=== PATIENT | male | born 1975 ===

== ENCOUNTER 2017-09-26 11:01 | Observation (INO) | payer SELFPAY ==
[~2017-09-26] VITALS: Ht 167.6 cm; Wt 91.0 kg
[2017-09-26] VITALS (11 sets, daily range): BP systolic 113–159; BP diastolic 75–110; PULSE 69–106; RESP 14–20; TEMP 98.3–99.3; O2SAT 95–98
--- NOTE | 2017-09-26 11:18 | PD ---
HPI Chief Complaint: Diabetic Time Seen by Provider: 11:15 Travel History International Travel<30 days: No Contact w/Intl Traveler<30days: No Traveled to known affect area: No History of Present Illness HPI 42 YO M with PMH of DM, HTN, hypothyroid, chronic alcoholism presents to the ED for evaluation of 2 day history of intermittent chest tightness. Described as a pressure, lasting 3 or 4 hours before resolving spontaneously. Patient endorses associated shortness of breath, diaphoresis, nausea and dizziness. He endorses nonproductive cough. He endorses a few episode of nonbilious nonbloody vomiting. He endorses blurred vision. He endorses loose stools and occasional streaky blood on the toilet paper. He denies headache, slurred speech, facial droop, unilateral weakness. He denies recent history of fever or chills, He endorses previous similar episodes 6 weeks ago. He was evaluated at [facility] where he had a negative stress test. He states he was diagnosed with T2 DM at that time and recently began taking metformin. He states that he is also attempting to quit drinking. He had a "small drink" 24 hours ago. He endorses years of chronic use. He denies history of cigarette smoking. He endorses history of multiple family members with AR, youngest at age 50. PFSH Past Medical History Cardiovascular Problems: Yes (HTN) Diabetes: Yes Social History Tobacco Use: No Allergies-Medications (Allergen,Severity, Reaction): Coded Allergies: No Known Allergies (Unverified , 09/26/17) Reported Meds & Prescriptions Reported Meds & Active Scripts Active Reported Carvedilol 6.25 Mg Tab 6.25 Mg PO BID Metformin (Metformin HCl) 500 Mg Tab 500 Mg PO BIDPC K-Tab (Potassium Chloride) 10 Meq Tab 10 Meq PO DAILY Synthroid (Levothyroxine Sodium) 150 Mcg Tab 150 Mcg PO DAILY Lisinopril 10 Mg Tab 10 Mg PO DAILY Review of Systems Except as stated in HPI: all other systems reviewed are Neg Physical Exam Narrative GENERAL: Well-nourished, well-developed pale male in no acute distress SKIN: Focused skin assessment warm/diaphoretic. HEAD: Normocephalic. Atraumatic. EYES: No scleral icterus. No injection or drainage. PERRLA. EOMI. NECK: Supple, trachea midline. No JVD or lymphadenopathy. CARDIOVASCULAR: Regular rate and rhythm without murmurs, gallops, or rubs. RESPIRATORY: Breath sounds clear and equal bilaterally. No accessory muscle use. GASTROINTESTINAL: Abdomen soft, non-tender, nondistended. Active bowel sounds. MUSCULOSKELETAL: No cyanosis, or edema. NEUROLOGICAL: Awake and alert. Cranial nerves II through XII intact. Motor and sensory grossly within normal limits. Five out of 5 muscle strength in all muscle groups. Normal speech. No pronator drift. Mild right-sided facial tremor noted. BACK: Nontender without obvious deformity. No CVA tenderness. Data Data Last Documented VS Vital Signs Date Time Temp Pulse Resp B/P (MAP) Pulse Ox O2 Delivery O2 Flow Rate FiO2 09/26/17 14:27 106 20 132/94 (107) 97 Room Air 09/26/17 11:03 98.4 Orders Orders Electrocardiogram (09/26/17 11:39) Ckmb (Isoenzyme) Profile (09/26/17 11:39) Complete Blood Count With Diff (09/26/17 11:39) Comprehensive Metabolic Panel (09/26/17 11:39) Magnesium (Mg) (09/26/17 11:39) Prothrombin Time / Inr (Pt) (09/26/17 11:39) Act Partial Throm Time (Ptt) (09/26/17 11:39) Troponin I (09/26/17 11:39) Chest, Single Ap (09/26/17 11:39) Ecg Monitoring (09/26/17 11:39) Bilateral Bp Monitoring (09/26/17 11:39) Iv Access Insert/Monitor (09/26/17 11:39) Oximetry (09/26/17 11:39) Sodium Chloride 0.9% Flush (Ns Flush) (09/26/17 11:45) Sodium Chlorid 0.9% 500 Ml Inj (Ns 500 M (09/26/17 11:45) Ct Brain W/O Iv Contrast(Rout) (09/26/17 ) Alcohol Withdrawal Asmt-Ciwa ONCE (09/26/17 11:39) Flumazenil Inj (Romazicon Inj) (09/26/17 11:45) Lorazepam (Ativan) (09/26/17 11:45) Lorazepam Inj (Ativan Inj) (09/26/17 11:45) Lorazepam (Ativan) (09/26/17 11:45) Lorazepam Inj (Ativan Inj) (09/26/17 11:45) Lorazepam Inj (Ativan Inj) (09/26/17 11:45) Lorazepam Inj (Ativan Inj) (09/26/17 11:45) Blood Glucose (09/26/17 11:39) Lorazepam Inj (Ativan Inj) (09/26/17 12:45) Alcohol (Ethanol) (09/26/17 12:30) Carvedilol (Coreg) (09/26/17 14:30) Lisinopril (Prinivil) (09/26/17 14:30) Magnesium Sulfate 1 Gm Premix (Magnesium (09/26/17 14:45) Lorazepam Inj (Ativan Inj) (09/26/17 15:00) Admit Order (Ed Use Only) (09/26/17 15:07) Labs Laboratory Tests Test 09/26/17 12:30 09/26/17 13:30 White Blood Count 7.2 TH/MM3 Red Blood Count 3.64 MIL/MM3 Hemoglobin 12.4 GM/DL Hematocrit 35.6 % Mean Corpuscular Volume 97.7 FL Mean Corpuscular Hemoglobin 34.1 PG Mean Corpuscular Hemoglobin Concent 34.8 % Red Cell Distribution Width 17.6 % Platelet Count 275 TH/MM3 Mean Platelet Volume 10.0 FL Neutrophils (%) (Auto) 76.5 % Lymphocytes (%) (Auto) 14.6 % Monocytes (%) (Auto) 7.0 % Eosinophils (%) (Auto) 0.8 % Basophils (%) (Auto) 1.1 % Neutrophils # (Auto) 5.5 TH/MM3 Lymphocytes # (Auto) 1.1 TH/MM3 Monocytes # (Auto) 0.5 TH/MM3 Eosinophils # (Auto) 0.1 TH/MM3 Basophils # (Auto) 0.1 TH/MM3 CBC Comment DIFF FINAL Differential Comment Prothrombin Time 13.4 SEC Prothromb Time International Ratio 1.2 RATIO Activated Partial Thromboplast Time 26.7 SEC Blood Urea Nitrogen 10 MG/DL Creatinine 0.73 MG/DL Random Glucose 135 MG/DL Total Protein 7.8 GM/DL Albumin 3.2 GM/DL Calcium Level 8.9 MG/DL Magnesium Level 0.7 MG/DL Alkaline Phosphatase 129 U/L Aspartate Amino Transf (AST/SGOT) 121 U/L Alanine Aminotransferase (ALT/SGPT) 56 U/L Total Bilirubin 2.7 MG/DL Sodium Level 135 MEQ/L Potassium Level 4.7 MEQ/L Chloride Level 99 MEQ/L Carbon Dioxide Level 25.9 MEQ/L Anion Gap 10 MEQ/L Estimat Glomerular Filtration Rate 117 ML/MIN Total Creatine Kinase 97 U/L Troponin I LESS THAN 0.02 NG/ML Ethyl Alcohol Level LESS THAN 3 MG/DL [facility] Medical Decision Making Medical Screen Exam Complete: Yes Emergency Medical Condition: Yes Differential Diagnosis Acute alcohol withdrawal versus hyperglycemia versus metabolic derangement versus anemia versus less likely ACS versus less likely ICH versus other Narrative Course 42 YO M with PMH of HTN, hypothyroid, chronic alcoholism, recently dx'd T2DM presents to the ED for evaluation of 2 day history of intermittent chest tightness. Described as a pressure, lasting 3 or 4 hours before resolving spontaneously. Patient endorses associated shortness of breath, diaphoresis, nausea and dizziness. He endorses blurred vision, nonproductive cough, a few episode of nonbilious, nonbloody vomiting, loose stools and occasional streaky blood on the toilet paper. He endorses previous similar episodes 6 weeks ago. He was evaluated at [facility] where he had a negative stress test. He states that he is attempting to quit drinking. He had a "small drink" 24 hours ago. He endorses years of chronic use. He denies history of cigarette smoking. He endorses history of multiple family members with AR, youngest at age 50. Patient afebrile, heart rate 101, BP 159/110, fingerstick blood glucose 152 on arrival. On exam the patient is pale and diaphoretic with a slight tremor in the right side of the face. No focal neuro deficits. No appreciable M/R/G. Chest CTAB. Abdomen soft, nontender with active bowel sounds. No CVA tenderness. No lower extremity edema. IV was established. Patient was administered 500 mL normal saline and 2 mg Ativan IV. CIWA protocol ordered. EKG: Rate 96, sinus rhythm. ND interval 163, QRS 91, QTC 431. Normal axis. No acute ST changes. Reviewed by Dr. Rojo. CXR: No acute disease per radiology read. Troponin: Negative 1 CBC: WBC 7.2. Hemoglobin 12.4 INR: 1.2 CMP: Glucose 135. Potassium 4.7. Magnesium 0.7. Bilirubin 2.7. AST 121 EtOH: Less than 3 CT brain: No acute findings I spoke with a friend at bedside who states that the patient is staying with her while he is attempting to quit drinking. They have been unsuccessful in finding a detox facility for the patient. She states that she has been giving him small glasses of vodka throughout the course of the day in an attempt to control his withdrawal symptoms. On recheck the patient remains tremulous. I discussed the findings of the workup and the need for admission. He is agreeable. Dr. Rojo spoke with Dr. Paul who agrees to accept the patient to the medicine service. Please see medicine notes for disposition. Jada Camara Sep 26, 2017 11:18
[2017-09-26] MEDS ORDERED: K-TA10TA PO (11:26)
[2017-09-26] MEDS ORDERED: LISI10TA3 PO (11:26)
[2017-09-26] MEDS ORDERED: LEVO.15 PO (11:26)
[2017-09-26] MEDS ORDERED: CARV6.252 PO (11:26)
[2017-09-26] MEDS ORDERED: METF500T PO (11:26)
[2017-09-26] MEDS ORDERED: LORazepam 2 MG/ML VIAL IM ONE (11:45)
[2017-09-26] MEDS ORDERED: SODIUM CHLORIDE 0.9% FLUSH 10 ML FLUSH IVF PRN (11:45)
[2017-09-26] MEDS ORDERED: LORazepam 2 MG/ML VIAL IV PUSH PRN ×3 (11:45)
[2017-09-26] MEDS ORDERED: LORazepam 2 MG TAB PO PRN (11:45)
[2017-09-26] MEDS ORDERED: FLUMAZENIL 0.5 MG/5 ML VIAL IV PUSH PRN (11:45)
[2017-09-26] MEDS ORDERED: SODIUM CHLORID 0.9% 500 ML INJ 500 ML IV ONE (11:45)
[2017-09-26] MEDS ORDERED: LORazepam 1 MG TAB PO PRN (11:45)
--- NOTE | 2017-09-26 12:15 | RADRPT ---
EXAM DATE/TIME: 09/26/2017 11:45 [facility] COMPARISON: No previous studies available for comparison. INDICATIONS : Chest pain and discomfort. MEDICAL HISTORY : Diabetes mellitus type II. Hypertension SURGICAL HISTORY : None. ENCOUNTER: Initial ACUITY: 2 days PAIN SCORE: 5/10 LOCATION: Bilateral chest FINDINGS: A single view of the chest demonstrates the lungs to be symmetrically aerated without evidence of mas s, infiltrate or effusion. The cardiomediastinal contours are unremarkable. Osseous structures are intact. CONCLUSION: No acute disease. Gabino Traore MD on September 26, 2017 at 12:13 Board Certified Radiologist. This report was verified electronically.
[2017-09-26] MEDS ORDERED: LORazepam 2 MG/ML VIAL IV PUSH ONE ×2 (12:45→15:00)
[2017-09-26 12:52] LABS: AUTOMATED NEUTROPHIL # 5.5 TH/MM3 (1.8-7.7); BASOPHIL # 0.1 TH/MM3 (0-0.2); BASOPHIL % 1.1 % (0.0-2.0); EOSINOPHIL # 0.1 TH/MM3 (0-0.4); EOSINOPHIL % 0.8 % (0.0-4.0); HEMATOCRIT 35.6 % (39.0-51.0); HEMO FLAGS DIFF FINAL; LYMPH % 14.6 % (9.0-44.0); LYMPHOCYTE # 1.1 TH/MM3 (1.0-4.8); MEAN CELL VOLUME 97.7 FL (80.0-100.0); MEAN CORPUSCULAR HEMOGLOBIN 34.1 PG (27.0-34.0); MEAN CORPUSCULAR HGB CONC 34.8 % (32.0-36.0); NEUT % 76.5 % (16.0-70.0); PLATELET COUNT 275 TH/MM3 (150-450); RED BLOOD COUNT 3.64 MIL/MM3 (4.50-5.90); RED CELL DISTRIBUTION WIDTH 17.6 % (11.6-17.2); WHITE BLOOD COUNT 7.2 TH/MM3 (4.0-11.0)
[2017-09-26 14:14] LABS: PROTHROMBIN TIME - PATIENT 13.4 SEC (9.8-11.6)
[2017-09-26 14:15] LABS: APTT (PATIENT) 26.7 SEC (24.3-30.1); INTERNATIONAL NORMALIZED RATIO 1.2 RATIO
[2017-09-26] MEDS ORDERED: CARVEDILOL 6.25 MG TAB PO ONE (14:30)
[2017-09-26] MEDS ORDERED: LISINOPRIL 10 MG TAB PO ONE (14:30)
[2017-09-26 14:33] LABS: ALKALINE PHOSPHATASE 129 U/L (45-117); ALT (GPT) 56 U/L (12-78); ANION GAP 10 MEQ/L (5-15); AST (GOT) 121 U/L (15-37); BICARBONATE 25.9 MEQ/L (21.0-32.0); BLOOD UREA NITROGEN 10 MG/DL (7-18); CHLORIDE 99 MEQ/L (98-107); GLOMERULAR FILTRATION RATE 117 ML/MIN (>89); SODIUM (NA) 135 MEQ/L (136-145); TOTAL BILIRUBIN ADULT 2.7 MG/DL (0.2-1.0)
[2017-09-26 14:34] LABS: ALCOHOL LESS THAN 3 MG/DL (0-5); CREATINE KINASE 97 U/L (39-308); MAGNESIUM 0.7 MG/DL (1.5-2.5); POTASSIUM 4.7 MEQ/L (3.5-5.1)
--- NOTE | 2017-09-26 14:37 | RADRPT ---
EXAM DATE/TIME: 09/26/2017 14:07 [facility] COMPARISON: No previous studies available for comparison. INDICATIONS : Dizziness. RADIATION DOSE: 56.35 CTDIvol (mGy) MEDICAL HISTORY : Cardiovascular disease. SURGICAL HISTORY : None. ENCOUNTER: Initial ACUITY: 1 day PAIN SCALE: 0/10 LOCATION: cranial TECHNIQUE: Multiple contiguous axial images were obtained of the head. Using automated exposure control and adj ustment of the mA and/or kV according to patient size, radiation dose was kept as low as reasonably a chievable to obtain optimal diagnostic quality images. DICOM format image data is available electro nically for review and comparison. FINDINGS: CEREBRUM: The ventricles are normal for age. Mild periventricular small vessel ischemic demyelination around t he frontal horns of the lateral ventricles. No evidence of midline shift, mass lesion, hemorrhage or acute infarction. No extra-axial fluid collections are seen. POSTERIOR FOSSA: The cerebellum and brainstem are intact. The 4th ventricle is midline. The cerebellopontine angle i s unremarkable. EXTRACRANIAL: The visualized portion of the orbits is intact. SKULL: The calvaria is intact. No evidence of skull fracture. CONCLUSION: 1. Minimal chronic changes and some periventricular small vessel ischemic demyelination around the fr ontal horns of the lateral ventricles. 2. Otherwise negative. Ben Ca MD on September 26, 2017 at 14:34 Board Certified Radiologist. This report was verified electronically.
[2017-09-26] MEDS ORDERED: MAGNESIUM SULFATE 1 GM PREMIX 100 ML IV ONE (14:45)
[2017-09-26] MEDS ORDERED: ACETAMINOPHEN 500 MG CPLT PO PRN (15:30)
[2017-09-26] MEDS ORDERED: GLUCAGON 1 MG/ML VIAL OTHER PRN (17:15)
[2017-09-26] MEDS ORDERED: DEXTROSE 50% IN WATER 50 ML VIAL(D50) IV PUSH PRN (17:15)
--- NOTE | 2017-09-26 17:16 | HHI.HP ---
[facility] Unknown Admission Diagnosis hypomagnesemia, acute alcohol withdrawal Diagnoses: Chief Complaint: Elevated blood pressure Travel History International Travel<30 Days: No Contact w/Intl Traveler <30 Da: No Traveled to Known Affected Are: No History of Present Illness Patient is a very pleasant 43-year-old gentleman who came to the emergency room for evaluation of elevated blood pressure while at home. He reports his blood pressure was 160/125. He has hypertension and normally takes lisinopril and Coreg prescribed by his primary care doctor. He reports discontinuing alcohol over the last several weeks because of increased psychosocial stressors and a current divorce. He has cut down to one bottle of wine a day. His sister accompanies him and says that he has had a DUI and has lost several relationships due to his alcohol dependency behavior. Patient says he had some chest pressure which was very mild and quite intermittent and has been going on for at least a year. He has been in multiple evaluation facilities for further evaluation most recently a stress test done 2 months ago at [facility] in [facility] (records to be obtained). This time he is chest pain- free. He reports increased anxiety. The patient has no radiating or exacerbating factors. Patient was quite worried by his blood pressure and that is the reason he came to the hospital. Review of Systems Constitutional: DENIES: Diaphoretic episodes, Fatigue, Fever, Weight gain, Weight loss, Chills, Dizziness, Change in appetite, Night Sweats Endocrine: DENIES: Heat/cold intolerance, Polydipsia, Polyuria, Polyphagia Eyes: DENIES: Blurred vision, Diplopia, Eye inflammation, Eye pain, Vision loss , Photosensitivity, Double Vision Ears, nose, mouth, throat: DENIES: Tinnitus, Hearing loss, Vertigo, Nasal discharge, Oral lesions, Throat pain, Hoarseness, Ear Pain, Running Nose, Epistaxis, Sinus Pain, Toothache, Odynophagia Respiratory: DENIES: Apneas, Cough, Snoring, Wheezing, Hemoptysis, Sputum production, Shortness of breath Cardiovascular: COMPLAINS OF: Chest pain, DENIES: Palpitations, Syncope, Dyspnea on Exertion, PND, Lower Extremity Edema, Orthopnea, Claudication Gastrointestinal: DENIES: Abdominal pain, Black stools, Bloody stools, Constipation, Diarrhea, Nausea, Vomiting, Difficulty Swallowing, Anorexia Genitourinary: DENIES: Sexual dysfunction, Urinary frequency, Urinary incontinence, Urgency, Hematuria, Dysuria, Nocturia, Penile Discharge, Testicular Pain, Testicular Swelling Musculoskeletal: DENIES: Joint pain, Muscle aches, Stiffness, Joint Swelling, Back pain, Neck pain Integumentary: DENIES: Abnormal pigmentation, Nail changes, Pruritus, Rash Hematologic/lymphatic: DENIES: Bruising, Lymphadenopathy Immunologic/allergic: DENIES: Eczema, Urticaria Neurologic: DENIES: Abnormal gait, Headache, Localized weakness, Paresthesias, Seizures, Speech Problems, Tremor, Poor Balance Psychiatric: COMPLAINS OF: Anxiety, DENIES: Confusion, Mood changes, Depression , Hallucinations, Agitation, Suicidal Ideation, Homicidal Ideation, Delusions Except as stated in HPI: all other systems reviewed are Neg Past Family Social History Past Medical History Hypertension Diabetes Hypothyroidism Alcohol dependency Past Surgical History Denies surgeries Reported Medications Reviewed in the EMR, nothing new Allergies: Coded Allergies: No Known Allergies (Unverified , 09/26/17) Active Ordered Medications Reviewed in the EMR Family History Mother had heart failure, heart attack and a stroke Father is healthy Social History No tobacco dependency, has "cut down" from an unquantified amount of alcohol to a current one bottle of wine a day but has had DUIs and has lost relationships and has been referred to rehabilitation Physical Exam Vital Signs Vital Signs Date Time Temp Pulse Resp B/P (MAP) Pulse Ox O2 Delivery O2 Flow Rate FiO2 09/26/17 14:27 106 20 132/94 (107) 97 Room Air 09/26/17 13:39 97 Room Air 09/26/17 13:00 105 20 147/106 (120) 97 Room Air 09/26/17 12:38 98 18 146/106 (119) 96 Room Air 09/26/17 11:23 100 16 95 Room Air 09/26/17 11:22 100 16 150/90 (110) 95 Room Air 09/26/17 11:03 98.4 101 14 159/110 (126) 98 Physical Exam GENERAL: This is a well-nourished, well-developed patient, in no apparent distress. SKIN: No rashes, ecchymoses or lesions. Cool and dry. HEAD: Atraumatic. Normocephalic. No temporal or scalp tenderness. EYES: Pupils equal round and reactive. Extraocular motions intact. No scleral icterus. No injection or drainage. ENT: Nose without bleeding, purulent drainage or septal hematoma. Throat without erythema, tonsillar hypertrophy or exudate. Uvula midline. Airway patent. NECK: Trachea midline. No JVD or lymphadenopathy. Supple, nontender, no meningeal signs. CARDIOVASCULAR: Regular rate and rhythm without murmurs, gallops, or rubs. RESPIRATORY: Clear to auscultation. Breath sounds equal bilaterally. No wheezes , rales, or rhonchi. GASTROINTESTINAL: Abdomen soft, non-tender, nondistended. No hepato-splenomegaly , or palpable masses. No guarding. MUSCULOSKELETAL: Extremities without clubbing, cyanosis, or edema. No joint tenderness, effusion, or edema noted. No calf tenderness. Negative Homans sign bilaterally. NEUROLOGICAL: Awake and alert. Cranial nerves II through XII intact. Motor and sensory grossly within normal limits. Five out of 5 muscle strength in all muscle groups. Normal speech. Laboratory Laboratory Tests Test 09/26/17 12:30 09/26/17 13:30 White Blood Count 7.2 Red Blood Count 3.64 Hemoglobin 12.4 Hematocrit 35.6 Mean Corpuscular Volume 97.7 Mean Corpuscular Hemoglobin 34.1 Mean Corpuscular Hemoglobin Concent 34.8 Red Cell Distribution Width 17.6 Platelet Count 275 Mean Platelet Volume 10.0 Neutrophils (%) (Auto) 76.5 Lymphocytes (%) (Auto) 14.6 Monocytes (%) (Auto) 7.0 Eosinophils (%) (Auto) 0.8 Basophils (%) (Auto) 1.1 Neutrophils # (Auto) 5.5 Lymphocytes # (Auto) 1.1 Monocytes # (Auto) 0.5 Eosinophils # (Auto) 0.1 Basophils # (Auto) 0.1 CBC Comment DIFF FINAL Differential Comment Prothrombin Time 13.4 Prothromb Time International Ratio 1.2 Activated Partial Thromboplast Time 26.7 Blood Urea Nitrogen 10 Creatinine 0.73 Random Glucose 135 Total Protein 7.8 Albumin 3.2 Calcium Level 8.9 Magnesium Level 0.7 Alkaline Phosphatase 129 Aspartate Amino Transf (AST/SGOT) 121 Alanine Aminotransferase (ALT/SGPT) 56 Total Bilirubin 2.7 Sodium Level 135 Potassium Level 4.7 Chloride Level 99 Carbon Dioxide Level 25.9 Anion Gap 10 Estimat Glomerular Filtration Rate 117 Total Creatine Kinase 97 Troponin I LESS THAN 0.02 Ethyl Alcohol Level LESS THAN 3 Result Diagram: 09/26/17 1230 09/26/17 1330 Imaging Last Impressions Chest X-Ray 09/26/17 1139 Signed Impressions: Service Date/Time: Tuesday, September 26, 2017 11:45 - CONCLUSION: No acute disease. Gabino Traore MD Head CT 09/26/17 0000 Signed Impressions: Service Date/Time: Tuesday, September 26, 2017 14:07 - CONCLUSION: 1. Minimal chronic changes and some periventricular small vessel ischemic demyelination around the frontal horns of the lateral ventricles. 2. Otherwise negative. MD Salvatore Mahajan VTE Risk Assessment Salvatore VTE Risk Assessment: Mod/High Risk (score >= 2) Caprini Risk Assessment Model Point Value = 1 Point Value = 2 Point Value = 3 Point Value = 5 Age 41-60 Minor surgery BMI > 25 kg/m2 Swollen legs Varicose veins or History of unexplained or recurrent spontaneous Oral contraceptives or hormone replacement Sepsis (< 1 month) Serious lung disease, including pneumonia (< 1 month) Abnormal pulmonary function Acute myocardial infarction Congestive heart failure (< 1 month) History of inflammatory bowel disease Medical patient at bed rest Age 61-74 Arthroscopic surgery Major open surgery (> 45 min) Laparoscopic surgery (> 45 min) Malignancy Confined to bed (> 72 hours) Immobilizing plaster cast Central venous access Age >= 75 History of VTE Family history of VTE Factor V Leiden Prothrombin [id number] Lupus anticoagulant Anticardiolipin antibodies Elevated serum homocysteine Heparin-induced thrombocytopenia Other congenital or acquired thrombophilia Stroke (< 1 month) Elective arthroplasty Hip, pelvis, or leg fracture Acute spinal cord injury (< 1 month) Prophylaxis Regimen Total Risk Factor Score Risk Level Prophylaxis Regimen 0-1 Low Early ambulation 2 Moderate Order ONE of the following: *Sequential Compression Device (SCD) *Heparin 5000 units SQ BID 3-4 Higher Order ONE of the following medications: *Heparin 5000 units SQ TID *Enoxaparin/Lovenox 40 mg SQ daily (WT < 150 kg, CrCl > 30 mL/min) *Enoxaparin/Lovenox 30 mg SQ daily (WT < 150 kg, CrCl > 10-29 mL/min) *Enoxaparin/Lovenox 30 mg SQ BID (WT < 150 kg, CrCl > 30 mL/min) AND/OR *Sequential Compression Device (SCD) 5 or more Highest Order ONE of the following medications: *Heparin 5000 units SQ TID (Preferred with Epidurals) *Enoxaparin/Lovenox 40 mg SQ daily (WT < 150 kg, CrCl > 30 mL/min) *Enoxaparin/Lovenox 30 mg SQ daily (WT < 150 kg, CrCl > 10-29 mL/min) *Enoxaparin/Lovenox 30 mg SQ BID (WT < 150 kg, CrCl > 30 mL/min) AND *Sequential Compression Device (SCD) Assessment and Plan Problem List: (1) Chest pain ICD Code: R07.9 - Chest pain, unspecified Plan: Atypical and likely noncardiac Patient had a stress test [address] [facility] 2 months ago and has had at least 4 stress tests over the last 4 years. Patient admits taking vitamin alcohol going through quite a bit of psychological stressors with [facility] (2) DM2 (diabetes mellitus, type 2) ICD Code: E11.9 - Type 2 diabetes mellitus without complications Plan: hOld metformin for now Sliding scale insulin and diabetic diet (3) HTN (hypertension) ICD Code: I10 - Essential (primary) hypertension Plan: Resume home medications (4) EtOH dependence ICD Code: F10.20 - Alcohol dependence, uncomplicated Plan: Patient currently trying to "cut down" With a history of DUI and psychosocial/relationship troubles due to alcoholism Recommend rehabilitation as an outpatient (5) Hypomagnesemia ICD Code: E83.42 - Hypomagnesemia Plan: Replace, follow phosphate and follow trend (6) Hypothyroidism ICD Code: E03.9 - Hypothyroidism, unspecified Plan: Continue Synthroid (7) LFT elevation ICD Code: R79.89 - Other specified abnormal findings of blood chemistry Plan: liver us pending likely due to etoh Nyasia Paul MD Sep 26, 2017 17:16
[2017-09-26] MEDS: NITROGLYCERIN 2% OINT 1 GM PACKET TOP SCH ×2 (18:27→23:42)
[2017-09-26] MEDS: ENOXAPARIN SODIUM 40 MG/0.4 ML SYRINGE SQ SCH (18:27)
--- NOTE | 2017-09-26 18:30 | RADRPT ---
EXAM DATE/TIME: 09/26/2017 18:04 [facility] COMPARISON: No previous studies available for comparison. INDICATIONS : Increase lab values. MEDICAL HISTORY : Hypertension. Diabetes. Anxiety. SURGICAL HISTORY : None. ENCOUNTER: Initial ACUITY: 1 day PAIN SCORE: 0/10 LOCATION: Bilateral upper quadrant MEASUREMENTS: LIVER: 23.2 cm length COMMON DUCT: 10 mm RIGHT KIDNEY: 12.2 x 4.6 x 5.0 cm SPLEEN: 12.0 cm length FINDINGS: LIVER: Severe increased and coarsened echotexture without focal lesion or ductal dilatation. Main portal vei n is patent with hepatopedal blood flow. COMMON DUCT: No intraluminal mass or stone visualized. GALLBLADDER: Contains no stones, demonstrates no wall thickening or pericholecystic fluid. The mild wall thickeni ng is likely related to underdistention. PANCREAS: The visualized portions are within normal limits. RIGHT KIDNEY: No hydronephrosis, stone or mass. SPLEEN: No focal lesion. CONCLUSION: 1. Hepatomegaly with severe increased and coarsened echotexture likely representing steatosis. 2. Mild enlargement of the common bile duct from uncertain etiology. Brent Wang MD on September 26, 2017 at 18:26 Board Certified Radiologist. This report was verified electronically.
[2017-09-26] MEDS: SODIUM CHLORIDE 0.9% FLUSH 10 ML FLUSH IV FLUSH SCH (21:00)
[2017-09-26] MEDS: INSULIN ASPART SUPPLEMENTAL SCALE SQ SCH (21:00)
[2017-09-26] MEDS: LORazepam 2 MG/ML VIAL IV PUSH PRN (21:08)
[2017-09-26 21:29] LABS: CREATINE KINASE 44 U/L (39-308)
[2017-09-26] MEDS: ENALAPRILAT 1.25 MG/ML VIAL IV PUSH PRN (23:41)
[2017-09-26] MEDS: MORPHINE SULFATE 4 MG/ML INJ IV PUSH PRN (23:41)
[2017-09-27] VITALS (7 sets, daily range): BP systolic 136–164; BP diastolic 97–115; PULSE 81–93; RESP 18; TEMP 97.3–98.2; O2SAT 95–97
[2017-09-27] MEDS: NITROGLYCERIN 2% OINT 1 GM PACKET TOP SCH ×4 (05:10→23:40)
[2017-09-27] MEDS: LORazepam 2 MG/ML VIAL IV PUSH PRN ×5 (05:10→22:36)
[2017-09-27 07:07] LABS: ALKALINE PHOSPHATASE 118 U/L (45-117); ALT (GPT) 52 U/L (12-78); ANION GAP 9 MEQ/L (5-15); AST (GOT) 105 U/L (15-37); BICARBONATE 28.8 MEQ/L (21.0-32.0); BLOOD UREA NITROGEN 12 MG/DL (7-18); CHLORIDE 99 MEQ/L (98-107); GLOMERULAR FILTRATION RATE 105 ML/MIN (>89); POTASSIUM 3.4 MEQ/L (3.5-5.1); SODIUM (NA) 137 MEQ/L (136-145); TOTAL BILIRUBIN ADULT 2.1 MG/DL (0.2-1.0)
[2017-09-27] MEDS: INSULIN ASPART SUPPLEMENTAL SCALE SQ SCH ×4 (07:44→20:29)
[2017-09-27] MEDS: SODIUM CHLORIDE 0.9% FLUSH 10 ML FLUSH IV FLUSH SCH ×2 (08:52→20:35)
[2017-09-27] MEDS ORDERED: PNEUMOCOCCAL POLYVALENT INJ 25 MCG/0.5 ML SYR IM ONE (10:00)
[2017-09-27] MEDS ORDERED: INFLUENZA VIRUS VACCINE (QUADRIVALENT) 0.5 ML SYR IM ONE (10:00)
[2017-09-27] MEDS ORDERED: POTASSIUM CHLORIDE 20 MEQ CONTROLLED RELEASE TAB PO ONE (12:15)
[2017-09-27] MEDS ORDERED: METOPROLOL TARTRATE 25 MG TAB PO SCH (12:30)
--- NOTE | 2017-09-27 13:22 | HHI.PR ---
Subjective Remarks Patient denies any cp now. He c/o sob on exertion for some time. As per patient chest pain relived by nitroglycerin. Objective Vitals Vital Signs Date Time Temp Pulse Resp B/P (MAP) Pulse Ox O2 Delivery O2 Flow Rate FiO2 09/27/17 08:00 98.0 89 18 146/98 (114) 97 09/27/17 04:00 97.3 83 18 136/97 (110) 95 09/26/17 23:34 98.3 87 16 152/106 (121) 95 09/26/17 21:00 96 09/26/17 19:00 99.3 92 18 149/100 (116) 95 09/26/17 17:50 94 20 113/75 (88) 97 09/26/17 16:00 69 19 115/85 (95) 98 Room Air 09/26/17 14:27 106 20 132/94 (107) 97 Room Air 09/26/17 13:39 97 Room Air I/O 09/26/17 09/26/17 09/26/17 09/27/17 09/27/17 09/27/17 07:00 15:00 23:00 07:00 15:00 23:00 Intake Total 840 ml 0 ml Balance 840 ml 0 ml Intake Oral 240 ml 0 ml IV Total 600 ml # Voids 3 2 # Bowel Movements 1 0 Result Diagram: 09/26/17 1230 09/27/17 0555 Imaging Last Impressions Chest X-Ray 09/26/17 1139 Signed Impressions: Service Date/Time: Tuesday, September 26, 2017 11:45 - CONCLUSION: No acute disease. Gabino Traore MD Liver Ultrasound 09/26/17 0000 Signed Impressions: Service Date/Time: Tuesday, September 26, 2017 18:04 - CONCLUSION: 1. Hepatomegaly with severe increased and coarsened echotexture likely representing steatosis. 2. Mild enlargement of the common bile duct from uncertain etiology. Brent Wang MD Head CT 09/26/17 0000 Signed Impressions: Service Date/Time: Tuesday, September 26, 2017 14:07 - CONCLUSION: 1. Minimal chronic changes and some periventricular small vessel ischemic demyelination around the frontal horns of the lateral ventricles. 2. Otherwise negative. Ben Ca MD Objective Remarks AAOx3 mild tremors in hands Clear lungs BL Abdomen soft, nt, nd no edema in lower extremities Medications and IVs Current Medications Medications (Trade) Dose Ordered Sig/Shannon Route Start Time Stop Time Status Last Admin (NS Flush) 2 ml UNSCH PRN IVF 09/26/17 11:45 (Romazicon Inj) 0.2 mg Q1M PRN IV PUSH 09/26/17 11:45 (Ativan) 1 mg Q4H PRN PO 09/26/17 11:45 (Ativan Inj) 1 mg Q4H PRN IV PUSH 09/26/17 11:45 09/27/17 08:47 (Ativan) 2 mg Q2H PRN PO 09/26/17 11:45 (Ativan Inj) 2 mg Q2H PRN IV PUSH 09/26/17 11:45 (Ativan Inj) 2 mg Q1H PRN IV PUSH 09/26/17 11:45 (Ativan Inj) 2 mg Q15M PRN IV PUSH 09/26/17 11:45 (NS Flush) 2 ml BID IV FLUSH 09/26/17 21:00 09/27/17 08:52 (NS Flush) 2 ml UNSCH PRN IV FLUSH 09/26/17 15:30 (Nitroglycerin 2% Oint) 1 inch Q6HR TOP 09/26/17 18:00 09/27/17 05:10 (Tylenol) 500 mg Q4H PRN PO 09/26/17 15:30 09/26/17 21:08 (Morphine Inj) 2 mg Q5M PRN IV PUSH 09/26/17 15:30 09/26/17 23:41 (Vasotec Inj) 1.25 mg Q6H PRN IV PUSH 09/26/17 17:15 09/26/17 23:41 (D50w (Vial) Inj) 50 ml UNSCH PRN IV PUSH 09/26/17 17:15 (Glucagon Inj) 1 mg UNSCH PRN OTHER 09/26/17 17:15 (NovoLOG SUPPLEMENTAL SCALE) 1 ACHS SLIDING SCALE SQ 09/26/17 21:00 (Lovenox Inj) 40 mg Q24H SQ 09/26/17 18:00 09/26/17 18:27 (Protonix) 40 mg DAILY PO 09/27/17 12:30 (Aspirin) 325 mg DAILY PO 09/27/17 12:30 (Lopressor) 25 mg Q12H PO 09/27/17 12:30 (Xanax) 0.25 mg Q8H PRN PO 09/27/17 12:30 A/P Problem List: (1) Chest pain ICD Code: R07.9 - Chest pain, unspecified Plan: Similar episodes 6 weeks ago. He was evaluated at [facility] where he had a negative stress test, request was sent as per RN to obtain medical records however given that it is the weekend, these records might not be available until thursday. Given the patient complains of pressure-like chest pain and dyspnea on exertion and EKG reviewed by me show some ST depression in the lateral leads I will order a nuclear stress test. Keep the patient nothing by mouth at midnight. Will also start the patient on PPI. (2) DM2 (diabetes mellitus, type 2) ICD Code: E11.9 - Type 2 diabetes mellitus without complications Status: Chronic Plan: Continue to hold metformin for now. Continue SSI with insulin NovoLog and placed on a diabetic diet. Nothing by mouth after midnight in preparation for nuclear stress testing. (3) HTN (hypertension) ICD Code: I10 - Essential (primary) hypertension Status: Chronic Plan: Continue home antihypertensive medications. Blood pressure seems to be stable. Continue to monitor vital signs. (4) EtOH dependence ICD Code: F10.20 - Alcohol dependence, uncomplicated Plan: Patient currently trying to "cut down" With a history of DUI and psychosocial/relationship troubles due to alcoholism Recommend rehabilitation as an outpatient (5) Hypomagnesemia ICD Code: E83.42 - Hypomagnesemia Plan: Status post replacement. Continue to monitor phosphorus which level is 3.5. (6) Hypothyroidism ICD Code: E03.9 - Hypothyroidism, unspecified Plan: TSH elevated at 35.5, however medication compliance is questionable. Continue home dose of levothyroxine. Check free T4. (7) LFT elevation ICD Code: R79.89 - Other specified abnormal findings of blood chemistry Plan: Likely secondary to alcohol use and hepatic cytosis. Liver ultrasound showed hepatomegaly with severe increased and coarsened echotexture likely representing steatosis. Mild enlargement of the common bile duct from uncertain etiology. LFTs slowly trending down. Consult GI to asses bile duct enlargement. Assessment and Plan GI prophylaxis: Add PPI. DVT prophylaxis: Lovenox subcutaneous. Discharge Planning Continue to monitor in the medical floor. Patient for a stress test in a.m., echocardiogram pending. GI consulted. Problem Qualifiers (1) DM2 (diabetes mellitus, type 2): (2) HTN (hypertension): Qualified Codes: I10 - Essential (primary) hypertension Jed Britton MD Sep 27, 2017 13:22
--- NOTE | 2017-09-27 13:24 | EKG ---
Date Performed: 09/26/2017 Time Performed: 11:32:42 PTAGE: 42 years EKG: Sinus rhythm MODERATE ST DEPRESSION ABNORMAL ECG NO PREVIOUS TRACING DOCTOR: Tom Luciano Interpretating Date/Time 09/27/2017 13:23:37
--- NOTE | 2017-09-27 13:25 | EKG ---
Date Performed: 09/26/2017 Time Performed: 21:14:19 PTAGE: 42 years EKG: Sinus rhythm MODERATE ST DEPRESSION ABNORMAL ECG Since PREVIOUS TRACING , no significant change noted PREVIOUS TRACIN09/26/2017 11.32 DOCTOR: Tom Luciano Interpretating Date/Time 09/27/2017 13:23:52
[2017-09-27] MEDS: LEVOTHYROXINE SODIUM 150 MCG TAB PO SCH (13:35)
[2017-09-27] MEDS: CARVEDILOL 6.25 MG TAB PO SCH ×2 (13:35→20:29)
[2017-09-27] MEDS: PANTOPRAZOLE SOD 40 MG DELAYED RELEASE TAB PO SCH (13:36)
[2017-09-27] MEDS: ASPIRIN 325 MG TAB PO SCH (13:36)
[2017-09-27] MEDS ORDERED: REGADENOSON INJ 0.4 MG/5 ML SYR ONE (15:40)
--- NOTE | 2017-09-27 16:50 | RADRPT ---
EXAM DATE/TIME: 09/27/2017 15:21 [facility] COMPARISON: CHEST SINGLE AP, September 26, 2017, 11:45. INDICATIONS : Mid chest pain for one day. Angina. DOSE: 25.5 mCi Tc99m Myoview at stress. 8.1 mCi Tc99m Myoview at rest. 0.4 mg Lexiscan STRESS SYMPTOMS: Shortness of breath. EJECTION FRACTION: 35% MEDICAL HISTORY : Hypertension. Diabetes mellitus type 2. SURGICAL HISTORY : None. ENCOUNTER: Initial ACUITY: 1 day PAIN SCALE: 3/10 LOCATION: Midsternal chest TECHNIQUE: The patient underwent pharmacologic stress with infusion of prescribed dose. Continuous ECG tracing was monitored during stress. Gated SPECT imaging was performed after stress and conventional SPECT i maging was performed at rest. The examination was performed on a SPECT/CT scanner, both attenuation and non-corrected datasets were reviewed. FINDINGS: DISTRIBUTION: The maximum perfused segment at stress is in the anterolateral wall. PERFUSION STUDY: The pattern of perfusion at stress is within normal limits. No fixed or reversible perfusion defect i s identified. GATED STUDY: There is global hypokinesia. No focal wall motion abnormality is seen. CONCLUSION: 1. Left ventricle perfusion is within normal limits without fixed or reversible perfusion defect iden tified. 2. However, there is global hypokinesia with abnormally reduced left ventricle ejection fraction calc ulated at 35%. RISK CATEGORY: Intermediate (1-3% Annual Mortality Rate) Brent Wang MD on September 27, 2017 at 16:46 Board Certified Radiologist. This report was verified electronically.
[2017-09-27] MEDS: ENOXAPARIN SODIUM 40 MG/0.4 ML SYRINGE SQ SCH (17:42)
[2017-09-27] MEDS: ENALAPRILAT 1.25 MG/ML VIAL IV PUSH PRN (20:29)
[2017-09-27] MEDS: ALPRAZolam 0.25 MG TAB PO PRN (20:34)
[2017-09-28 00:19] VITALS: BP 135/86; PULSE 89; RESP 18; TEMP 99.9; O2SAT 96
[2017-09-28] MEDS: MORPHINE SULFATE 4 MG/ML INJ IV PUSH PRN (04:15)
[2017-09-28 04:32] VITALS: BP 117/80; PULSE 94; RESP 18; TEMP 99.2; O2SAT 96
[2017-09-28] MEDS: LEVOTHYROXINE SODIUM 150 MCG TAB PO SCH (06:17)
[2017-09-28] MEDS: ALPRAZolam 0.25 MG TAB PO PRN ×3 (06:17→23:12)
[2017-09-28] MEDS: NITROGLYCERIN 2% OINT 1 GM PACKET TOP SCH ×3 (06:17→18:03)
[2017-09-28 08:00] VITALS: BP 136/98; PULSE 89; RESP 18; TEMP 99.9; O2SAT 93
[2017-09-28] MEDS: INSULIN ASPART SUPPLEMENTAL SCALE SQ SCH ×4 (08:00→21:00)
[2017-09-28] MEDS: PANTOPRAZOLE SOD 40 MG DELAYED RELEASE TAB PO SCH (09:08)
[2017-09-28] MEDS: CARVEDILOL 6.25 MG TAB PO SCH ×2 (09:08→20:37)
[2017-09-28] MEDS: ASPIRIN 325 MG TAB PO SCH (09:08)
[2017-09-28] MEDS: SODIUM CHLORIDE 0.9% FLUSH 10 ML FLUSH IV FLUSH SCH ×2 (09:10→20:37)
--- NOTE | 2017-09-28 09:49 | PD.CONS ---
HPI History of Present Illness This is a 42 year old male patient who presented to the emergency room for evaluation of elevated blood sugar, blood pressure, and chest pain. He describes this as a pressure like pain across the anterior chest that was aggravated with exertion. He also had some associated shortness of breath. He states that the chest discomfort has since resolved. GI was consulted for elevated LFTs. He has a long history of ETOH abuse. He reports that he was drinking 2-3 mixed drinks per day, but recently tried to cut back to 1/2 bottle of wine daily. He reports that he has not had any alcohol x 5 days. He is not currently having any nausea/vomiting, but states that he did have a few episodes 1.5-2 weeks ago. Around the same time, he had some intermittent abdominal cramping associated with "junk food." He denies any hematemesis, diarrhea, constipation, melena, or hematochezia. He reports that he has lost a few lbs over the past week, but states this is related to changing his diet for his diabetes. He denies any known history of liver disease in himself or family members. (Tiana Birch) PFSH Past Medical History Hypertension Diabetes Hypothyroidism Alcohol dependency Past Surgical History Denies surgeries (Tiana Birch) Coded Allergies: No Known Allergies (Unverified , 09/26/17) Medications Allergies Coded Allergies Type Severity Reaction Last Updated Verified No Known Allergies 09/26/17 No Active Scripts Medications Dose Route/Sig Max Daily Dose Days Date Category Carvedilol 6.25 Mg Tab 6.25 Mg PO BID 09/26/17 Reported Metformin (Metformin HCl) 500 Mg Tab 500 Mg PO BIDPC 09/26/17 Reported K-Tab (Potassium Chloride) 10 Meq Tab 10 Meq PO DAILY 09/26/17 Reported Synthroid (Levothyroxine Sodium) 150 Mcg Tab 150 Mcg PO DAILY 09/26/17 Reported Lisinopril 10 Mg Tab 10 Mg PO DAILY 09/26/17 Reported Family History Mother had heart failure, heart attack and a stroke Father is healthy Social History No tobacco use. Was drinking 2-3 mixed drinks daily, states he cut back to 1/2 bottle of wine and has not had any x 5 days. No illicit drug use (Tiana Birch) Review of Systems Constitutional: COMPLAINS OF: Fatigue, Weight loss, Chills, DENIES: Fever, Change in appetite Respiratory: COMPLAINS OF: Shortness of breath, DENIES: Cough Gastrointestinal: COMPLAINS OF: Nausea, Vomiting, DENIES: Abdominal pain, Black stools, Bloody stools, Constipation, Diarrhea, Swelling of Abdomen, Heartburn Hematologic/lymphatic: COMPLAINS OF: Bruising Neurologic: COMPLAINS OF: Headache Psychiatric: DENIES: Confusion (Tiana Birch) GI Exam Vitals I&O Vital Signs Date Time Temp Pulse Resp B/P (MAP) Pulse Ox O2 Delivery O2 Flow Rate FiO2 09/28/17 08:00 99.9 89 18 136/98 (111) 93 09/28/17 04:32 99.2 94 18 117/80 (92) 96 09/28/17 00:19 99.9 89 18 135/86 (102) 96 09/27/17 20:50 158/98 (118) 09/27/17 20:41 98.2 88 18 157/110 (126) 96 09/27/17 19:14 84 09/27/17 16:00 98.1 81 18 164/115 (131) 97 09/27/17 12:00 98.0 93 18 161/114 (130) 95 I/O 09/27/17 09/27/17 09/27/17 09/28/17 09/28/17 09/28/17 07:00 15:00 23:00 07:00 15:00 23:00 Intake Total 0 ml 240 ml 0 ml Balance 0 ml 240 ml 0 ml Intake Oral 0 ml 240 ml 0 ml # Voids 2 1 2 2 # Bowel Movements 0 0 0 Imaging Last Impressions Myocardial Perfusion Scan Nuc Med 09/27/17 0000 Signed Impressions: Service Date/Time: Wednesday, September 27, 2017 15:21 - CONCLUSION: 1. Left ventricle perfusion is within normal limits without fixed or reversible perfusion defect identified. 2. However, there is global hypokinesia with abnormally reduced left ventricle ejection fraction calculated at 35%%. RISK CATEGORY: Intermediate (1-3%% Annual Mortality Rate) Brent Wang MD Chest X-Ray 09/26/17 1139 Signed Impressions: Service Date/Time: Tuesday, September 26, 2017 11:45 - CONCLUSION: No acute disease. Gabino Traore MD Liver Ultrasound 09/26/17 0000 Signed Impressions: Service Date/Time: Tuesday, September 26, 2017 18:04 - CONCLUSION: 1. Hepatomegaly with severe increased and coarsened echotexture likely representing steatosis. 2. Mild enlargement of the common bile duct from uncertain etiology. Brent Wang MD Head CT 09/26/17 0000 Signed Impressions: Service Date/Time: Tuesday, September 26, 2017 14:07 - CONCLUSION: 1. Minimal chronic changes and some periventricular small vessel ischemic demyelination around the frontal horns of the lateral ventricles. 2. Otherwise negative. Ben Ca MD Laboratory Test 09/27/17 17:12 Free Thyroxine 0.81 NG/DL Physical Examination HEENT: Normocephalic; atraumatic; no jaundice. CHEST: CTA CARDIAC: RRR ABDOMEN: Soft, nondistended, NONtender; hepatosplenomegaly; bowel sounds are present in all four quadrants. EXTREMITIES: No clubbing, cyanosis, or edema. SKIN: Normal; no rash; no jaundice. ROADWAY TECHNICIAN: No focal deficits; alert and oriented times three. (Tiana Birch) Assessment and Plan Plan ASSESSMENT: - Elevated LFTs with CBD at upper limits of normal 10mm. US (09/26/17)---> Hepatomegaly with severe increased and coarsened echotexture likely representing steatosis, mild enlargement of the common bile duct from uncertain etiology. T. Bili 2.1, AST 105, ALT 52, Alk Phosph 118. Pt with long hx of ETOH abuse- recently cut back from 2-3 mixed drinks to 1/ 2 bottle of wine and no ETOH x 5 days. He had some n/v 1.5-2 weeks ago, not currently having this or abdominal pain. Likely related to ETOH abuse, but will get MRCP to rule out obstructive process, given his dilated CBD. - Atypical chest pain, workup per attending. - Hypothyroidism with elevated TSH, DM, HTN per attending. PLAN: - Clear liquids - MRCP - Await hepatitis profile - CBC, CMP in am - ETOH cessation - Supportive care - Further recommendations to follow based on results of above - PT seen and examined by Dr. Terry and myself and this note is written on his behalf (Tiana Birch) Physician Comments Patient seen and examined Agree with above Continue with current supportive care Monitor labs MRCP negative for any biliary dilatation Labs most consistent with acute alcoholic hepatitis Workup in progress (Jeremy Terry MD) Tiana Birch Sep 28, 2017 09:49 Jeremy Terry MD Sep 28, 2017 21:11
[2017-09-28] MEDS: LORazepam 2 MG/ML VIAL IV PUSH PRN (10:58)
[2017-09-28] MEDS: SODIUM CHLORIDE 0.9% FLUSH 10 ML FLUSH IV FLUSH PRN (11:00)
[2017-09-28 12:00] VITALS: BP 141/91; PULSE 84; RESP 18; TEMP 98.5; O2SAT 93
--- NOTE | 2017-09-28 13:17 | RADRPT ---
EXAM DATE/TIME: 09/28/2017 11:22 [facility] COMPARISON: No previous studies available for comparison. INDICATIONS : Obstruction. MEDICAL HISTORY : Hypertension. Diabetes mellitus type 2. SURGICAL HISTORY : None. ENCOUNTER: Initial ACUITY: 2 day PAIN SCORE: 3/10 LOCATION: Bilateral upper quadrant TECHNIQUE: Multiplanar, multisequence magnetic resonance imaging of the abdomen was performed. High-resolution 3D dataset was utilized to reconstruct maximum-intensity projection (MIP) images. FINDINGS: The intrahepatic ducts are normal in caliber. The proper hepatic duct and common bile duct are normal in size. Maximum dimension of the common bile duct is 5 mm. No stones are seen. No stones are identified within the gallbladder. The pancreatic duct is normal in caliber. Examination of the source data demonstrates hepatomegaly. There is significant signal dropout of the hepatic parenchyma on the opposed phase imaging consistent with diffuse fatty infiltration/steatosis. No discrete mass is identified within the liver. The spleen, pancreas and adrenal glands are intact. There is no retroperitoneal lymphadenopathy. CONCLUSION: 1. Hepatomegaly with findings suggesting steatosis. 2. No findings to indicate biliary obstruction identified. Rashi Hernandez MD on September 28, 2017 at 13:12 Board Certified Radiologist. This report was verified electronically.
--- NOTE | 2017-09-28 15:05 | HHI.PR ---
Subjective Remarks Denies cp or sob at rest. Denies palpitations. (+) Low grade fever with a tmax of 99.9 Objective Vitals Vital Signs Date Time Temp Pulse Resp B/P (MAP) Pulse Ox O2 Delivery O2 Flow Rate FiO2 09/28/17 12:00 98.5 84 18 141/91 (108) 93 09/28/17 08:00 99.9 89 18 136/98 (111) 93 09/28/17 04:32 99.2 94 18 117/80 (92) 96 09/28/17 00:19 99.9 89 18 135/86 (102) 96 09/27/17 20:50 158/98 (118) 09/27/17 20:41 98.2 88 18 157/110 (126) 96 09/27/17 19:14 84 09/27/17 16:00 98.1 81 18 164/115 (131) 97 I/O 09/27/17 09/27/17 09/27/17 09/28/17 09/28/17 09/28/17 07:00 15:00 23:00 07:00 15:00 23:00 Intake Total 0 ml 240 ml 0 ml 600 ml Balance 0 ml 240 ml 0 ml 600 ml Intake Oral 0 ml 240 ml 0 ml 600 ml # Voids 2 1 2 2 2 # Bowel Movements 0 0 0 0 Result Diagram: 09/26/17 1230 09/27/17 0555 Imaging Last Impressions Cholangiopancreatography MRI 09/28/17 0000 Signed Impressions: Service Date/Time: Thursday, September 28, 2017 11:22 - CONCLUSION: 1. Hepatomegaly with findings suggesting steatosis. 2. No findings to indicate biliary obstruction identified. Rashi Hernandez MD Myocardial Perfusion Scan Nuc Med 09/27/17 0000 Signed Impressions: Service Date/Time: Wednesday, September 27, 2017 15:21 - CONCLUSION: 1. Left ventricle perfusion is within normal limits without fixed or reversible perfusion defect identified. 2. However, there is global hypokinesia with abnormally reduced left ventricle ejection fraction calculated at 35%%. RISK CATEGORY: Intermediate (1-3%% Annual Mortality Rate) Brent Wang MD Chest X-Ray 09/26/17 1139 Signed Impressions: Service Date/Time: Tuesday, September 26, 2017 11:45 - CONCLUSION: No acute disease. Gabino Traore MD Liver Ultrasound 09/26/17 0000 Signed Impressions: Service Date/Time: Tuesday, September 26, 2017 18:04 - CONCLUSION: 1. Hepatomegaly with severe increased and coarsened echotexture likely representing steatosis. 2. Mild enlargement of the common bile duct from uncertain etiology. Brent Wang MD Head CT 09/26/17 0000 Signed Impressions: Service Date/Time: Tuesday, September 26, 2017 14:07 - CONCLUSION: 1. Minimal chronic changes and some periventricular small vessel ischemic demyelination around the frontal horns of the lateral ventricles. 2. Otherwise negative. Ben Ca MD Objective Remarks AAOx3 tremors in hand improving. Clear lungs BL Abdomen soft, nt, nd no edema in lower extremities Medications and IVs Current Medications Medications (Trade) Dose Ordered Sig/Shannon Route Start Time Stop Time Status Last Admin (NS Flush) 2 ml UNSCH PRN IVF 09/26/17 11:45 (Romazicon Inj) 0.2 mg Q1M PRN IV PUSH 09/26/17 11:45 (Ativan) 1 mg Q4H PRN PO 09/26/17 11:45 (Ativan Inj) 1 mg Q4H PRN IV PUSH 09/26/17 11:45 09/28/17 10:58 (Ativan) 2 mg Q2H PRN PO 09/26/17 11:45 (Ativan Inj) 2 mg Q2H PRN IV PUSH 09/26/17 11:45 (Ativan Inj) 2 mg Q1H PRN IV PUSH 09/26/17 11:45 (Ativan Inj) 2 mg Q15M PRN IV PUSH 09/26/17 11:45 (NS Flush) 2 ml BID IV FLUSH 09/26/17 21:00 09/28/17 09:10 (NS Flush) 2 ml UNSCH PRN IV FLUSH 09/26/17 15:30 09/28/17 11:00 (Nitroglycerin 2% Oint) 1 inch Q6HR TOP 09/26/17 18:00 09/28/17 14:35 (Tylenol) 500 mg Q4H PRN PO 09/26/17 15:30 09/26/17 21:08 (Morphine Inj) 2 mg Q5M PRN IV PUSH 09/26/17 15:30 09/28/17 04:15 (Vasotec Inj) 1.25 mg Q6H PRN IV PUSH 09/26/17 17:15 09/27/17 20:29 (D50w (Vial) Inj) 50 ml UNSCH PRN IV PUSH 09/26/17 17:15 (Glucagon Inj) 1 mg UNSCH PRN OTHER 09/26/17 17:15 (NovoLOG SUPPLEMENTAL SCALE) 1 ACHS SLIDING SCALE SQ 09/26/17 21:00 (Lovenox Inj) 40 mg Q24H SQ 09/26/17 18:00 09/27/17 17:42 (Protonix) 40 mg DAILY PO 09/27/17 12:30 09/28/17 09:08 (Aspirin) 325 mg DAILY PO 09/27/17 12:30 09/28/17 09:08 (Xanax) 0.25 mg Q8H PRN PO 09/27/17 12:30 09/28/17 14:35 (Coreg) 6.25 mg BID PO 09/27/17 13:30 09/28/17 09:08 (Synthroid) 150 mcg DAILY@0600 PO 09/27/17 13:30 09/28/17 06:17 A/P Problem List: (1) Chest pain ICD Code: R07.9 - Chest pain, unspecified Plan: Similar episodes 6 weeks ago. He was evaluated at [facility] where he had a negative stress test, request was sent as per RN to obtain medical records however given that it is the weekend, these records might not be available until thursday. Given the patient complains of pressure-like chest pain and dyspnea on exertion and EKG reviewed by me show some ST depression in the lateral leads I will order a nuclear stress test. Keep the patient nothing by mouth at midnight. Will also start the patient on PPI. 09/27 nuclear stress as described above is negative for ischemia. However there was noted global hypokinesia with abnormally reduced left ventricular ejection fraction calculated at 35%. I will obtain a 2-D echocardiogram and consult cardiology. (2) DM2 (diabetes mellitus, type 2) ICD Code: E11.9 - Type 2 diabetes mellitus without complications Status: Chronic Plan: Continue to hold metformin for now. Continue SSI with insulin NovoLog and placed on a diabetic diet. Nothing by mouth after midnight in preparation for nuclear stress testing. (3) HTN (hypertension) ICD Code: I10 - Essential (primary) hypertension Status: Chronic (4) EtOH dependence ICD Code: F10.20 - Alcohol dependence, uncomplicated Plan: Patient currently trying to "cut down" With a history of DUI and psychosocial/relationship troubles due to alcoholism Recommend rehabilitation as an outpatient (5) Hypomagnesemia ICD Code: E83.42 - Hypomagnesemia Status: Resolved Plan: Status post replacement. Continue to monitor phosphorus which level is 3.5. Continue to monitor magnesium. (6) Hypothyroidism ICD Code: E03.9 - Hypothyroidism, unspecified Plan: TSH elevated at 35.5, however medication compliance is questionable. Continue home dose of levothyroxine. Check free T4. 09/28 free T4 within normal range. I will recommend for the TSH to be repeated in 4-6 weeks. TSH likely elevated secondary to noncompliance. (7) LFT elevation ICD Code: R79.89 - Other specified abnormal findings of blood chemistry Plan: Likely secondary to alcohol use and hepatic cytosis. Liver ultrasound showed hepatomegaly with severe increased and coarsened echotexture likely representing steatosis. Mild enlargement of the common bile duct from uncertain etiology. LFTs slowly trending down. Consult GI to asses bile duct enlargement. 09/28 the patient underwent an MRCP which reports finding suggestive of a cytosis however no findings to indicate biliary obstruction. GI recommended clear liquid diet. I will order. (8) Hypokalemia ICD Code: E87.6 - Hypokalemia Status: Acute Plan: Mild hypokalemia with potassium level III.4 on 09/27. Potassium has been replaced. Continue to monitor and replace as needed. BMP has been ordered today however still not available. Assessment and Plan GI prophylaxis: Add PPI. DVT prophylaxis: Lovenox subcutaneous. Discharge Planning Continue to monitor in the medical floor. Problem Qualifiers (1) DM2 (diabetes mellitus, type 2): (2) HTN (hypertension): Qualified Codes: I10 - Essential (primary) hypertension Jed Britton MD Sep 28, 2017 15:05
[2017-09-28 15:46] LABS: AUTOMATED NEUTROPHIL # 5.9 TH/MM3 (1.8-7.7); BASOPHIL # 0.1 TH/MM3 (0-0.2); BASOPHIL % 1.1 % (0.0-2.0); EOSINOPHIL # 0.1 TH/MM3 (0-0.4); EOSINOPHIL % 1.5 % (0.0-4.0); HEMATOCRIT 33.2 % (39.0-51.0); HEMO FLAGS DIFF FINAL; LYMPH % 11.6 % (9.0-44.0); LYMPHOCYTE # 0.8 TH/MM3 (1.0-4.8); MEAN CELL VOLUME 98.9 FL (80.0-100.0); MEAN CORPUSCULAR HEMOGLOBIN 33.5 PG (27.0-34.0); MEAN CORPUSCULAR HGB CONC 33.9 % (32.0-36.0); MONO % 5.5 % (0.0-8.0); NEUT % 80.3 % (16.0-70.0); PLATELET COUNT 191 TH/MM3 (150-450); RED BLOOD COUNT 3.35 MIL/MM3 (4.50-5.90); RED CELL DISTRIBUTION WIDTH 17.3 % (11.6-17.2); WHITE BLOOD COUNT 7.3 TH/MM3 (4.0-11.0)
[2017-09-28 16:00] VITALS: BP 145/96; PULSE 81; RESP 17; TEMP 98.1; O2SAT 93
[2017-09-28 16:03] LABS: ALT (GPT) 54 U/L (12-78); ANION GAP 8 MEQ/L (5-15); AST (GOT) 105 U/L (15-37); BICARBONATE 26.8 MEQ/L (21.0-32.0); BLOOD UREA NITROGEN 12 MG/DL (7-18); CHLORIDE 100 MEQ/L (98-107); GLOMERULAR FILTRATION RATE 86 ML/MIN (>89); POTASSIUM 3.5 MEQ/L (3.5-5.1); SODIUM (NA) 135 MEQ/L (136-145)
[2017-09-28 16:06] LABS: ALKALINE PHOSPHATASE 131 U/L (45-117); TOTAL BILIRUBIN ADULT 2.4 MG/DL (0.2-1.0)
[2017-09-28 16:20] LABS: HEMOGLOBIN A1a 1.4 %; HEMOGLOBIN Ao 79.8 %; HEMOGLOBIN LA1C 1.6 %; HEMOGLOBIN P3 3.6 %
[2017-09-28 17:29] LABS: BLOOD, URINE NEG (NEG); COMMENT (UR) CULT NOT INDICATED; CULTURE IF INDICATED CULT NOT INDICATED; GLUCOSE,URINE NEG (NEG); KETONE, URINE NEG (NEG); MUCUS URINE FEW /lpf (OCC); NITRITE,URINE NEG (NEG); SQUAMOUS EPITHELIAL CELL URINE <1 /hpf (0-5); URINE COLOR ORANGE (YELLW/STRAW)
[2017-09-28] MEDS: ENOXAPARIN SODIUM 40 MG/0.4 ML SYRINGE SQ SCH (18:03)
[2017-09-28 20:00] VITALS: BP 157/109; PULSE 87; RESP 17; TEMP 99.3; O2SAT 98
--- NOTE | 2017-09-28 21:29 | MB ---
cc: MADELIN WAGNER MD DATE OF CONSULTATION 09/28/2017 REASON FOR CONSULTATION Cardiomyopathy. HISTORY OF PRESENT ILLNESS Mr. Carlson is a 42-year-old man who presented to the emergency room with acute alcohol withdrawal. The patient reports that his blood pressure was 160/125. The patient reports that he was down to a bottle of wine a day that he split with his . This is notably inconsistent with prior documents. The patient also reported some mild chest pain and underwent further evaluation. His nuclear stress test showed normal perfusion and EF of 35%. Cardiology was subsequently consulted. PAST MEDICAL HISTORY Significant for: 1. Hypertension. 2. Diabetes. 3. Hypothyroidism. 4. Ethyl alcohol dependency. ALLERGIES NO KNOWN DRUG ALLERGIES. MEDICATIONS Outpatient medications reportedly included: 1. Coreg. 2. Lisinopril. FAMILY HISTORY Positive for mother who had myocardial infarction, CVA and heart failure. REVIEW OF SYSTEMS Except as mentioned in HPI all 12 systems are negative. PHYSICAL EXAMINATION VITAL SIGNS: Currently are 98.1, 81, 17, 145/96. GENERAL: In general he is a well-appearing man in no apparent distress. NECK: His neck is free from JVD. LUNGS: The lungs are bilaterally clear to auscultation. CARDIOVASCULAR: Examination he has a normal S1-S2. I do not appreciate any murmurs, rubs, or gallops. ABDOMEN: The abdomen is soft. EXTREMITIES: The extremities are free from edema. IMPRESSION Alcoholic cardiomyopathy - the patient does have an EF of 35% with normal perfusion on stress test which is 90% accurate as you know. I did discuss that this is a very serious matter. He absolutely needs to quit and get on and stay on the Coreg and lisinopril. This is important for both blood pressure and his cardiomyopathy. Additionally his thyroid control will need to be excellent as well. I also did place him on fluid and sodium restrictions to avoid heart failure. It does not appear that he needs any diuretics at this time. It is reasonable for him to be discharged from a cardiac perspective. I will be available p.r.n. Madelin Wagner M.D. FRAN/TREVER /6:33 PM /9:26 PM
[2017-09-29] VITALS: BP 151/104; PULSE 91; RESP 17; TEMP 99.8; O2SAT 94
[2017-09-29] MEDS: LORazepam 2 MG/ML VIAL IV PUSH PRN (02:52)
[2017-09-29 04:00] VITALS: BP 137/90; PULSE 89; RESP 15; TEMP 98.9; O2SAT 93
[2017-09-29] MEDS: LEVOTHYROXINE SODIUM 150 MCG TAB PO SCH (06:39)
[2017-09-29 07:43] LABS: AUTOMATED NEUTROPHIL # 8.3 TH/MM3 (1.8-7.7); BASOPHIL # 0.1 TH/MM3 (0-0.2); BASOPHIL % 0.9 % (0.0-2.0); EOSINOPHIL # 0.2 TH/MM3 (0-0.4); EOSINOPHIL % 1.6 % (0.0-4.0); HEMATOCRIT 31.9 % (39.0-51.0); HEMO FLAGS DIFF FINAL; LYMPH % 13.2 % (9.0-44.0); LYMPHOCYTE # 1.4 TH/MM3 (1.0-4.8); MEAN CELL VOLUME 99.6 FL (80.0-100.0); MEAN CORPUSCULAR HEMOGLOBIN 33.9 PG (27.0-34.0); MEAN CORPUSCULAR HGB CONC 34.1 % (32.0-36.0); MONO % 5.1 % (0.0-8.0); NEUT % 79.2 % (16.0-70.0); PLATELET COUNT 206 TH/MM3 (150-450); RED CELL DISTRIBUTION WIDTH 17.9 % (11.6-17.2); WHITE BLOOD COUNT 10.4 TH/MM3 (4.0-11.0)
[2017-09-29 07:53] LABS: MAGNESIUM 1.2 MG/DL (1.5-2.5)
[2017-09-29 07:58] LABS: INDIRECT BILIRUBIN 0.7 MG/DL (0.0-0.8); TOTAL BILIRUBIN ADULT 2.1 MG/DL (0.2-1.0)
[2017-09-29 08:00] VITALS: BP 145/95; PULSE 85; RESP 18; TEMP 98.6; O2SAT 93
[2017-09-29] MEDS: INSULIN ASPART SUPPLEMENTAL SCALE SQ SCH ×4 (08:00→21:07)
[2017-09-29] MEDS: ALPRAZolam 0.25 MG TAB PO PRN ×2 (08:49→17:21)
[2017-09-29] MEDS: PANTOPRAZOLE SOD 40 MG DELAYED RELEASE TAB PO SCH (08:49)
[2017-09-29] MEDS: CARVEDILOL 6.25 MG TAB PO SCH ×2 (08:49→21:06)
[2017-09-29] MEDS: SODIUM CHLORIDE 0.9% FLUSH 10 ML FLUSH IV FLUSH SCH ×2 (08:52→21:07)
[2017-09-29] MEDS: LISINOPRIL 10 MG TAB PO SCH (08:56)
--- NOTE | 2017-09-29 11:12 | HHI.GIFU ---
Subjective Remarks Resting in bed. Denies any GI symptoms such as nausea, vomiting, abdominal pain. (Tiana Birch) Objective Vitals I&O Vital Signs Date Time Temp Pulse Resp B/P (MAP) Pulse Ox O2 Delivery O2 Flow Rate FiO2 09/29/17 08:00 98.6 85 18 145/95 (112) 93 09/29/17 04:00 98.9 89 15 137/90 (106) 93 09/29/17 00:00 99.8 91 17 151/104 (120) 94 09/28/17 20:00 99.3 87 17 157/109 (125) 98 09/28/17 19:02 Room Air 09/28/17 16:00 98.1 81 17 145/96 (112) 93 09/28/17 12:00 98.5 84 18 141/91 (108) 93 I/O 09/28/17 09/28/17 09/28/17 09/29/17 09/29/17 09/29/17 07:00 15:00 23:00 07:00 15:00 23:00 Intake Total 0 ml 600 ml Balance 0 ml 600 ml Intake Oral 0 ml 600 ml # Voids 2 2 2 # Bowel Movements 0 0 Laboratory Laboratory Tests Test 09/28/17 15:23 09/28/17 16:40 09/29/17 06:53 White Blood Count 7.3 10.4 Red Blood Count 3.35 3.20 Hemoglobin 11.2 10.9 Hematocrit 33.2 31.9 Mean Corpuscular Volume 98.9 99.6 Mean Corpuscular Hemoglobin 33.5 33.9 Mean Corpuscular Hemoglobin Concent 33.9 34.1 Red Cell Distribution Width 17.3 17.9 Platelet Count 191 206 Mean Platelet Volume 9.3 9.3 Neutrophils (%) (Auto) 80.3 79.2 Lymphocytes (%) (Auto) 11.6 13.2 Monocytes (%) (Auto) 5.5 5.1 Eosinophils (%) (Auto) 1.5 1.6 Basophils (%) (Auto) 1.1 0.9 Neutrophils # (Auto) 5.9 8.3 Lymphocytes # (Auto) 0.8 1.4 Monocytes # (Auto) 0.4 0.5 Eosinophils # (Auto) 0.1 0.2 Basophils # (Auto) 0.1 0.1 CBC Comment DIFF FINAL DIFF FINAL Differential Comment Blood Urea Nitrogen 12 Creatinine 0.95 Random Glucose 147 Total Protein 7.3 7.3 Albumin 3.2 3.1 Calcium Level 8.8 Alkaline Phosphatase 131 134 Aspartate Amino Transf (AST/SGOT) 105 95 Alanine Aminotransferase (ALT/SGPT) 54 54 Total Bilirubin 2.4 2.1 Sodium Level 135 Potassium Level 3.5 Chloride Level 100 Carbon Dioxide Level 26.8 Anion Gap 8 Estimat Glomerular Filtration Rate 86 Urine Color ORANGE Urine Turbidity CLEAR Urine pH 6.0 Urine Specific [place] 1.033 Urine Protein 30 Urine Glucose (UA) NEG Urine Ketones NEG Urine Occult Blood NEG Urine Nitrite NEG Urine Bilirubin MOD Urine Urobilinogen GREATER THAN 12.0 Urine Leukocyte Esterase TRACE Urine RBC 1 Urine WBC 2 Urine Squamous Epithelial Cells <1 Urine Mucus FEW Microscopic Urinalysis Comment CULT NOT INDICATED Phosphorus Level 3.1 Magnesium Level 1.2 Direct Bilirubin 1.4 Indirect Bilirubin 0.7 Imaging Last Impressions Cholangiopancreatography MRI 09/28/17 0000 Signed Impressions: Service Date/Time: Thursday, September 28, 2017 11:22 - CONCLUSION: 1. Hepatomegaly with findings suggesting steatosis. 2. No findings to indicate biliary obstruction identified. Rashi Hernandez MD Myocardial Perfusion Scan Nuc Med 09/27/17 0000 Signed Impressions: Service Date/Time: Wednesday, September 27, 2017 15:21 - CONCLUSION: 1. Left ventricle perfusion is within normal limits without fixed or reversible perfusion defect identified. 2. However, there is global hypokinesia with abnormally reduced left ventricle ejection fraction calculated at 35%%. RISK CATEGORY: Intermediate (1-3%% Annual Mortality Rate) Brent Wang MD Chest X-Ray 09/26/17 1139 Signed Impressions: Service Date/Time: Tuesday, September 26, 2017 11:45 - CONCLUSION: No acute disease. Gabino Traore MD Liver Ultrasound 09/26/17 0000 Signed Impressions: Service Date/Time: Tuesday, September 26, 2017 18:04 - CONCLUSION: 1. Hepatomegaly with severe increased and coarsened echotexture likely representing steatosis. 2. Mild enlargement of the common bile duct from uncertain etiology. Brent Wang MD Head CT 09/26/17 0000 Signed Impressions: Service Date/Time: Saturday, September 26, 2017 14:07 - CONCLUSION: 1. Minimal chronic changes and some periventricular small vessel ischemic demyelination around the frontal horns of the lateral ventricles. 2. Otherwise negative. Ben Ca MD Physical Exam HEENT: Normocephalic; atraumatic; no jaundice. CHEST: CTA CARDIAC: RRR ABDOMEN: Soft, mildly distended, nontender; no hepatosplenomegaly; bowel sounds are present in all four quadrants. EXTREMITIES: No clubbing, cyanosis, or edema. SKIN: Normal; no rash; no jaundice. SHELTER SUPERVISOR: No focal deficits; alert and oriented times three. (Tiana Birch) Assessment and Plan Plan ASSESSMENT: - Elevated LFTs with CBD at upper limits of normal 10mm. US (09/26/17)---> Hepatomegaly with severe increased and coarsened echotexture likely representing steatosis, mild enlargement of the common bile duct from uncertain etiology. Pt with long hx of ETOH abuse- recently cut back from 2-3 mixed drinks to 1/2 bottle of wine and no ETOH x 5 days. He had some n/ v 1.5-2 weeks ago, not currently having this or abdominal pain. Likely related to alcoholic hepatitis. LFTs improved. Hepatitis profile pending. T. Bili 2.1, AST 95, ALT 54, Alk Phosh 134. DF 8.5. - CBD upper limits of normal at 10mm. S/P MRCP (09/29/17)---> Hepatomegaly with findings suggesting steatosis, no findings to indicate biliary obstruction identified. - Atypical chest pain. Stress test no fixed or reversible defects, but there is global hypokinesia with abnormally reduced left ventricle ejection fraction at 35%. Per attending. - Hypothyroidism with elevated TSH, DM, HTN per attending. PLAN: - Heart healthy diet. - Liver workup - ETOH cessation- D/W patient - Monitor labs - Supportive care - Further recommendations to follow based on results of above - PT seen and examined by Dr. Terry and myself and this note is written on his behalf (Tiana Birch) Physician Comments Patient seen and examined Agree with above Continue with current supportive care Monitor labs Emphasis on low salt diet and alcohol abstinence Not much to add from a GI standpoint therefore we will sign off Please reconsult as needed (Jeremy Terry MD) Tiana Birch 14, 2017 11:12 Jeremy Terry MD Sep 29, 2017 21:45
[2017-09-29 12:00] VITALS: BP 156/98; PULSE 79; RESP 18; TEMP 98.7; O2SAT 94
[2017-09-29 16:00] VITALS: BP 151/103; PULSE 80; RESP 18; TEMP 98.1; O2SAT 94
[2017-09-29] MEDS: ENALAPRILAT 1.25 MG/ML VIAL IV PUSH PRN (16:37)
--- NOTE | 2017-09-29 16:51 | ECHRPT ---
Indication: SHORTNESS OF BREATH CONCLUSIONS Normal left ventricular size. Mild concentric left ventricular hypertrophy. The left ventricular systolic function is low normal with an estimated ejection fraction in the rang e of 50- 55%. Suciy-mb-faoy mitral valve regurgitation. There is mild tricuspid valve regurgitation. The estimated pulmonary arterial pressure is 31 mmHg. BP: 141 / 91 HR: 84 Rhythm: Sinus MEASUREMENTS (Male / Female) Normal Values Technical Quality:Fair 2D ECHO LV Diastolic Diameter PLAX 5.5 cm 4.2 - 5.9 / 3.9 - 5.3 cm LV Systolic Diameter PLAX 4.7 cm IVS Diastolic Thickness 1.0 cm 0.6 - 1.0 / 0.6 - 0.9 cm LVPW Diastolic Thickness 1.0 cm 0.6 - 1.0 / 0.6 - 0.9 cm LV Relative Wall Thickness 0.4 LVOT Diameter 2.4 cm Aortic Root Diameter 3.3 cm LA Systolic Diameter LX 3.0 cm 3.0 - 4.0 / 2.7 - 3.8 cm M-MODE AV Cusp Separation MM 2.3 cm DOPPLER AV Peak Velocity 134.0 cm/s AV Peak Gradient 7.2 mmHg AV Mean Gradient 4.0 mmHg AV Velocity Time Integral 22.7 cm LVOT Peak Velocity 83.5 cm/s LVOT Peak Gradient 2.8 mmHg LVOT Velocity Time Integral 14.3 cm AV Area Cont Eq vti 2.8 cm AV Area Cont Eq pk 2.8 cm Mitral E Point Velocity 55.8 cm/s Mitral A Point Velocity 75.0 cm/s Mitral E to A Ratio 0.7 LV E' Lateral Velocity 8.7 cm/s Mitral E to LV E' Lateral Ratio 6.4 LV E' Septal Velocity 6.1 cm/s Mitral E to LV E' Septal Ratio 9.1 TR Peak Velocity 231.0 cm/s TR Peak Gradient 21.3 mmHg Right Atrial Pressure 10.0 mmHg Pulmonary Artery Systolic Pressu 31.3 mmHg Right Ventricular Systolic Press 31.3 mmHg PV Peak Velocity 48.9 cm/s PV Peak Gradient 1.0 mmHg FINDINGS LEFT VENTRICLE Normal left ventricular size. Mild concentric left ventricular hypertrophy. The left ventricular systolic function is low normal with an estimated ejection fraction in the rang e of 50- 55%. RIGHT VENTRICLE Normal right ventricular size and systolic function. LEFT ATRIUM The left atrial size is normal. RIGHT ATRIUM The right atrial size is normal. ATRIAL SEPTUM Normal atrial septal thickness without atrial level shunting by limited color doppler interrogation. AORTA The aortic root and proximal ascending aorta are normal in size on limited imaging. MITRAL VALVE [id number] mitral valve regurgitation. AORTIC VALVE Trileaflet aortic valve. No aortic valve stenosis or regurgitation. TRICUSPID VALVE There is mild tricuspid valve regurgitation. The estimated pulmonary arterial pressure is 31.3 mmHg. PULMONARY VALVE No pulmonary valve regurgitation or stenosis. PERICARDIUM No pericardial effusion. Nikki Adorno MD, FACC (Electronically Signed) Final Date:29 September 2017 16:50
[2017-09-29] MEDS: ENOXAPARIN SODIUM 40 MG/0.4 ML SYRINGE SQ SCH (17:21)
[2017-09-29 20:00] VITALS: BP 168/102; PULSE 86; RESP 20; TEMP 99.2; O2SAT 98
[2017-09-29] MEDS: MORPHINE SULFATE 4 MG/ML INJ IV PUSH PRN (21:06)
[2017-09-29 23:04] LABS: TRANSFERRIN IRON PROFILE 259 MG/DL (200-360)
[2017-09-29 23:06] LABS: FERRITIN 917 NG/ML (26-388)
[2017-09-30] VITALS: BP 152/98; PULSE 74; RESP 20; TEMP 98.6; O2SAT 95
[2017-09-30] MEDS: ALPRAZolam 0.25 MG TAB PO PRN ×3 (03:06→18:12)
[2017-09-30] MEDS: MORPHINE SULFATE 4 MG/ML INJ IV PUSH PRN ×3 (03:10→16:50)
[2017-09-30 04:00] VITALS: PULSE 82; RESP 20; TEMP 98; O2SAT 96
[2017-09-30] MEDS: LEVOTHYROXINE SODIUM 150 MCG TAB PO SCH (05:14)
[2017-09-30 05:15] VITALS: BP 137/90
[2017-09-30 08:00] VITALS: BP 158/99; PULSE 73; RESP 18; TEMP 98.3; O2SAT 96
[2017-09-30] MEDS: INSULIN ASPART SUPPLEMENTAL SCALE SQ SCH ×3 (08:00→17:00)
[2017-09-30] MEDS: SODIUM CHLORIDE 0.9% FLUSH 10 ML FLUSH IV FLUSH SCH (09:00)
[2017-09-30 09:49] LABS: AUTOMATED NEUTROPHIL # 6.7 TH/MM3 (1.8-7.7); BASOPHIL # 0.1 TH/MM3 (0-0.2); BASOPHIL % 1.2 % (0.0-2.0); EOSINOPHIL # 0.1 TH/MM3 (0-0.4); EOSINOPHIL % 1.6 % (0.0-4.0); HEMATOCRIT 34.9 % (39.0-51.0); HEMO FLAGS DIFF FINAL; LYMPH % 15.5 % (9.0-44.0); LYMPHOCYTE # 1.4 TH/MM3 (1.0-4.8); MEAN CELL VOLUME 99.4 FL (80.0-100.0); MEAN CORPUSCULAR HEMOGLOBIN 33.8 PG (27.0-34.0); MONO % 5.1 % (0.0-8.0); NEUT % 76.6 % (16.0-70.0); PLATELET COUNT 219 TH/MM3 (150-450); RED BLOOD COUNT 3.51 MIL/MM3 (4.50-5.90); RED CELL DISTRIBUTION WIDTH 17.9 % (11.6-17.2); WHITE BLOOD COUNT 8.7 TH/MM3 (4.0-11.0)
[2017-09-30 10:14] LABS: ANION GAP 11 MEQ/L (5-15); AST (GOT) 92 U/L (15-37); BICARBONATE 23.5 MEQ/L (21.0-32.0); BLOOD UREA NITROGEN 10 MG/DL (7-18); CHLORIDE 100 MEQ/L (98-107); GLOMERULAR FILTRATION RATE 107 ML/MIN (>89); POTASSIUM 3.1 MEQ/L (3.5-5.1); SODIUM (NA) 134 MEQ/L (136-145)
[2017-09-30] MEDS: LISINOPRIL 10 MG TAB PO SCH (10:16)
[2017-09-30] MEDS: CARVEDILOL 6.25 MG TAB PO SCH (10:16)
[2017-09-30] MEDS: SODIUM CHLORIDE 0.9% FLUSH 10 ML FLUSH IV FLUSH PRN (10:17)
[2017-09-30] MEDS: PANTOPRAZOLE SOD 40 MG DELAYED RELEASE TAB PO SCH (10:17)
[2017-09-30 10:18] LABS: ALKALINE PHOSPHATASE 145 U/L (45-117); ALT (GPT) 57 U/L (12-78)
[2017-09-30 12:00] VITALS: BP 150/96; PULSE 79; RESP 18; TEMP 98.8; O2SAT 95
[2017-09-30] MEDS ORDERED: POTASSIUM CHLORIDE 10 MEQ CONTROLLED RELEASE TAB PO ONE (16:45)
[2017-09-30] MEDS: ENOXAPARIN SODIUM 40 MG/0.4 ML SYRINGE SQ SCH (16:50)
[2017-09-30 17:05] VITALS: BP 132/90; PULSE 79; RESP 18; TEMP 98.8; O2SAT 96
--- NOTE | 2017-09-30 17:20 | HHI.DCPOC ---
Discharge Care Plan Diagnosis: (1) Hypomagnesemia (2) Hypokalemia (3) HTN (hypertension) (4) DM2 (diabetes mellitus, type 2) (5) LFT elevation (6) EtOH dependence (7) Chest pain (8) Hypothyroidism Goals to Promote Your Health * To prevent worsening of your condition and complications * To maintain your health at the optimal level Directions to Meet Your Goals Take your medications as prescribed Follow your dietary instruction Follow activity as directed Keep your appointments as scheduled Take your immunizations and boosters as scheduled If your symptoms worsen call your PCP, if no PCP go to Urgent Care Center or Emergency Room Smoking is Dangerous to Your Health. Avoid second hand smoke Call the 24-hour hour crisis hotline for domestic abuse at Jed Britton MD Sep 30, 2017 17:19
--- NOTE | 2017-09-30 17:41 | HHI.DS ---
Discharge Summary Admission Date Sep 26, 2017 at 15:09 Discharge Date: Sep 30, 2017 Admitting Diagnosis hypomagnesemia, acute alcohol withdrawal (1) Chest pain ICD Code: R07.9 - Chest pain, unspecified Diagnosis: Principal Status: Resolved (2) DM2 (diabetes mellitus, type 2) ICD Code: E11.9 - Type 2 diabetes mellitus without complications Diagnosis: Principal Status: Chronic (3) HTN (hypertension) ICD Code: I10 - Essential (primary) hypertension Diagnosis: Secondary Status: Chronic (4) EtOH dependence ICD Code: F10.20 - Alcohol dependence, uncomplicated Diagnosis: Principal Status: Chronic (5) Hypomagnesemia ICD Code: E83.42 - Hypomagnesemia Diagnosis: Principal Status: Resolved (6) Hypothyroidism ICD Code: E03.9 - Hypothyroidism, unspecified Diagnosis: Principal Status: Acute (7) LFT elevation ICD Code: R79.89 - Other specified abnormal findings of blood chemistry (8) Hypokalemia ICD Code: E87.6 - Hypokalemia Status: Acute Procedures none Brief History - From Admission Patient is a very pleasant 43-year-old gentleman who came to the emergency room for evaluation of elevated blood pressure while at home. He reports his blood pressure was 160/125. He has hypertension and normally takes lisinopril and Coreg prescribed by his primary care doctor. He reports discontinuing alcohol over the last several weeks because of increased psychosocial stressors and a current divorce. He has cut down to one bottle of wine a day. His sister accompanies him and says that he has had a DUI and has lost several relationships due to his alcohol dependency behavior. Patient says he had some chest pressure which was very mild and quite intermittent and has been going on for at least a year. He has been in multiple evaluation facilities for further evaluation most recently a stress test done 2 months ago at [facility] in [facility] (records to be obtained). This time he is chest pain- free. He reports increased anxiety. The patient has no radiating or exacerbating factors. Patient was quite worried by his blood pressure and that is the reason he came to the hospital. CBC/BMP: 09/30/17 0844 09/30/17 0844 Significant Findings Laboratory Tests Test 09/28/17 15:23 09/28/17 16:40 09/29/17 06:53 09/29/17 19:55 Red Blood Count 3.35 MIL/MM3 (4.50-5.90) 3.20 MIL/MM3 (4.50-5.90) Hemoglobin 11.2 GM/DL (13.0-17.0) 10.9 GM/DL (13.0-17.0) Hematocrit 33.2 % (39.0-51.0) 31.9 % (39.0-51.0) Red Cell Distribution Width 17.3 % (11.6-17.2) 17.9 % (11.6-17.2) Neutrophils (%) (Auto) 80.3 % (16.0-70.0) 79.2 % (16.0-70.0) Lymphocytes # (Auto) 0.8 TH/MM3 (1.0-4.8) Random Glucose 147 MG/DL (74-106) Albumin 3.2 GM/DL (3.4-5.0) 3.1 GM/DL (3.4-5.0) Alkaline Phosphatase 131 U/L (45-117) 134 U/L (45-117) Aspartate Amino Transf (AST/SGOT) 105 U/L (15-37) 95 U/L (15-37) Total Bilirubin 2.4 MG/DL (0.2-1.0) 2.1 MG/DL (0.2-1.0) Sodium Level 135 MEQ/L (136-145) Estimat Glomerular Filtration Rate 86 ML/MIN (>89) Urine Color ORANGE (YELLW/STRAW) Urine Protein 30 mg/dL (NEG-TRACE) Urine Bilirubin MOD (NEG) Urine Urobilinogen GREATER THAN 12.0 MG/DL Urine Leukocyte Esterase TRACE (NEG) Urine Mucus FEW /lpf (OCC) Neutrophils # (Auto) 8.3 TH/MM3 (1.8-7.7) Magnesium Level 1.2 MG/DL (1.5-2.5) Direct Bilirubin 1.4 MG/DL (0.0-0.2) Iron Level 60 MCG/DL (65-175) Percent Iron Saturation 16.5 % (20-50) Ferritin 917 NG/ML (26-388) Test 09/30/17 08:44 Red Blood Count 3.51 MIL/MM3 (4.50-5.90) Hemoglobin 11.9 GM/DL (13.0-17.0) Hematocrit 34.9 % (39.0-51.0) Red Cell Distribution Width 17.9 % (11.6-17.2) Neutrophils (%) (Auto) 76.6 % (16.0-70.0) Albumin 3.3 GM/DL (3.4-5.0) Alkaline Phosphatase 145 U/L (45-117) Aspartate Amino Transf (AST/SGOT) 92 U/L (15-37) Total Bilirubin 2.0 MG/DL (0.2-1.0) Sodium Level 134 MEQ/L (136-145) Potassium Level 3.1 MEQ/L (3.5-5.1) Imaging Last Impressions Cholangiopancreatography MRI 09/28/17 0000 Signed Impressions: Service Date/Time: Thursday, September 28, 2017 11:22 - CONCLUSION: 1. Hepatomegaly with findings suggesting steatosis. 2. No findings to indicate biliary obstruction identified. Rashi Hernandez MD Myocardial Perfusion Scan Nuc Med 09/27/17 0000 Signed Impressions: Service Date/Time: Wednesday, September 27, 2017 15:21 - CONCLUSION: 1. Left ventricle perfusion is within normal limits without fixed or reversible perfusion defect identified. 2. However, there is global hypokinesia with abnormally reduced left ventricle ejection fraction calculated at 35%%. RISK CATEGORY: Intermediate (1-3%% Annual Mortality Rate) Brent Wang MD Chest X-Ray 09/26/17 1139 Signed Impressions: Service Date/Time: Tuesday, September 26, 2017 11:45 - CONCLUSION: No acute disease. Gabino Traore MD Liver Ultrasound 09/26/17 0000 Signed Impressions: Service Date/Time: Tuesday, September 26, 2017 18:04 - CONCLUSION: 1. Hepatomegaly with severe increased and coarsened echotexture likely representing steatosis. 2. Mild enlargement of the common bile duct from uncertain etiology. Brent Wang MD Head CT 09/26/17 0000 Signed Impressions: Service Date/Time: Tuesday, September 26, 2017 14:07 - CONCLUSION: 1. Minimal chronic changes and some periventricular small vessel ischemic demyelination around the frontal horns of the lateral ventricles. 2. Otherwise negative. Ben Ca MD PE at Discharge AAOx3 tremors in hand improving. Clear lungs BL Abdomen soft, nt, nd no edema in lower extremities Pt update on day of discharge Denies chest pain, sob. Denies nausea, vomiting or abdominal pain. Hospital Course (1) Chest pain Similar episodes 6 weeks ago. He was evaluated at [facility] where he had a negative stress test, request was sent as per RN to obtain medical records however given that it is the weekend, these records might not be available until thursday. Given the patient complains of pressure-like chest pain and dyspnea on exertion and EKG reviewed by me show some ST depression in the lateral leads I will order a nuclear stress test. Keep the patient nothing by mouth at midnight. Will also start the patient on PPI. Nuclear stress as described above is negative for ischemia. However there was noted global hypokinesia with abnormally reduced left ventricular ejection fraction calculated at 35%. 2-D echocardiogram showed a normal left ventricular size, mild concentric left ventricular hypertrophy and left ventricular systolic function low normal with an estimated ejection fraction range of 50-55%. Trace mitral Regurgitation. Mild tricuspid valve regurgitation. Cardiology was consulted and recommended the patient to be on a beta dion and an ROMULO inhibitor. The patient will continue on Coreg and Lisinopril. (2) DM2 (diabetes mellitus, type 2) Metformin held during patient's hospitalization. Continue SSI with insulin NovoLog and placed on a diabetic diet. Nothing by mouth after midnight in preparation for nuclear stress testing. Blood sugars remained stable. (3) HTN (hypertension) Coreg and lisinopril continued - very stable. (4) EtOH dependence Patient currently trying to "cut down" With a history of DUI and psychosocial/relationship troubles due to alcoholism Recommend rehabilitation as an outpatient (5) Hypomagnesemia Status post replacement. Continue to monitor phosphorus which level is 3.5. Continue to monitor magnesium. (6) Hypothyroidism Plan: TSH elevated at 35.5, however medication compliance is questionable. Continue home dose of levothyroxine. Check free T4. 09/28 free T4 within normal range. I will recommend for the TSH to be repeated in 4-6 weeks. TSH likely elevated secondary to noncompliance. (7) Transaminitis Likely secondary to alcohol use and hepatic steatosis. Liver ultrasound showed hepatomegaly with severe increased and coarsened echotexture likely representing steatosis. Mild enlargement of the common bile duct from uncertain etiology. LFTs slowly trending down. Consult GI to asses bile duct enlargement. 09/28 the patient underwent an MRCP which reports finding suggestive of hepatomegaly however no findings to indicate biliary obstruction. GI recommended clear liquid diet. 09/30 Lft's monitored and trending down. Patient was strongly advised to stop drinking alcohol. Hepatitis profile negative, LILIAM negative. (8) Hypokalemia Mild hypokalemia with potassium level 3.4 on 09/27. Potassium level was replaced orally as needed and monitored throughout hospital stay. Potassium 3.1 on day of discharge. The patient was given potassium chloride 30 milliequivalents by mouth once. GI prophylaxis: Add PPI. DVT prophylaxis: Lovenox subcutaneous. Pt Condition on Discharge: Stable Discharge Disposition: Discharge Home Discharge Time: > 30 minutes Discharge Instructions DIET: Follow Instructions for: Heart Healthy Diet Activities you can perform: Regular-No Restrictions Activities to Avoid: Prolonged Standing, Strenuous Activity Follow up Referrals: Cardiology - 4 Weeks with Gretchen Vidal MD Gastroenterology - 4 Weeks with Jeremy Terry MD PCP Follow-up Continued Medications: Carvedilol (Carvedilol) 6.25 Mg Tab 6.25 MG PO BID, #60 TAB 0 Refills Levothyroxine (Synthroid) 150 Mcg Tab 150 MCG PO DAILY for Thyroid, #30 TAB 0 Refills Lisinopril (Lisinopril) 10 Mg Tab 10 MG PO DAILY, #30 TAB 0 Refills Metformin (Metformin) 500 Mg Tab 500 MG PO BIDPC for Blood Sugar Management, #60 TAB 0 Refills Potassium Chloride ER (K-Tab) 10 Meq Tab 10 MEQ PO DAILY for Electrolyte Replacement, #30 TAB 0 Refills Jed Britton MD Sep 30, 2017 17:41
[2017-10-04 23:53] LABS: MITOCHONDRIAL ABS LESS THAN 20.0 U (<=20.0)
== END 2017-09-30 20:15 | disposition home or self-care (01) ==
LOC: NEPC 11:01 → INTOOBSV 15:09 → NEDA 15:09 → N06A 18:05
PROVIDERS: ADMIT Hospitalist; ATTEND Hospitalist
DX: R07.89 Other chest pain (principal); R06.02 Shortness of breath; R61 Generalized hyperhidrosis; R11.0 Nausea; R74.0 Nonspecific elevation of levels of transaminase and lactic acid dehydrogenase [LDH]; R94.6 Abnormal results of thyroid function studies; R42 Dizziness and giddiness; R05 Cough; H53.8 Other visual disturbances; R50.9 Fever, unspecified; E11.65 Type 2 diabetes mellitus with hyperglycemia; I10 Essential (primary) hypertension; F10.239 Alcohol dependence with withdrawal, unspecified; R94.31 Abnormal electrocardiogram [ECG] [EKG]; E83.42 Hypomagnesemia; E03.9 Hypothyroidism, unspecified; I42.6 Alcoholic cardiomyopathy; R79.89 Other specified abnormal findings of blood chemistry; F41.9 Anxiety disorder, unspecified; E87.6 Hypokalemia; K76.0 Fatty (change of) liver, not elsewhere classified; I07.1 Rheumatic tricuspid insufficiency; Z79.899 Other long term (current) drug therapy; Z79.84 Long term (current) use of oral hypoglycemic drugs; Z23 Encounter for immunization
CPT/HCPCS: 70450; 71010; 74181; 76377; 76705; 78452; 80053; 80074; 80076; 80307; 81001; 82103; 82105; 82390; 82550; 82728; 82948; 83036; 83520; 83540; 83550; 83735; 84100; 84439; 84443; 84484; 85025; 85610; 85730; 86038; 86255; 90686; 90732; 93005; 93017; 93306; 96361; 96365; 96375; 96376; 99285; A9502; G0378; J1650; J2060; J2270; J2785; J3475; J7040; Q2038